=== PATIENT | female | born 1975 | race Hispanic/Latino ===

== ENCOUNTER 2019-07-03 02:53 | Emergency (ER) | payer SELFPAY ==
--- OUTSIDE RECORDS SUMMARY | 2019-07-03 02:56 | XMS REPORT ---
:1975 [facility] [place] [id number] Care Team Providers Name Role Phone Unavailable Unavailable Unavailable Problems This patient has no known problems. Allergies, Adverse Reactions, Alerts This patient has no known allergies or adverse reactions. Medications This patient has no known medications.
[2019-07-03] MEDS ORDERED: THIAMINE 200 MG/2 ML INJ ONE (03:32)
[2019-07-03] MEDS ORDERED: NA CHLORIDE 0.9% 1,000 ML ONE (03:33)
[2019-07-03] MEDS ORDERED: ONDANSETRON 4 MG/2 ML VIAL ONE (03:33)
[2019-07-03] MEDS ORDERED: NA CHLORIDE 0.9% 50 ML IV ONE (03:35)
[2019-07-03 03:52] LABS: Basophils % 1.5 % (0-1.3); Hematocrit 34.9 % (36.0-45.0); Lymphocytes % 59.9 % (15.3-44.8); MPV 8.4 fL (7.6-11.3); RBC Red Blood Cell Count 4.07 M/uL (3.86-4.86)
[2019-07-03 04:00] LABS: Protime INR 0.84
[2019-07-03 04:10] LABS: ALT/SGPT 42 U/L (12-78); AST/SGOT 68 U/L (15-37); Albumin 3.7 g/dL (3.4-5.0); Alkaline Phosphatase 79 U/L (45-117); BUN Blood Urea Nitrogen 6 mg/dL (7-18); Bicarbonate 26 mmol/L (21-32); Bilirubin Direct < 0.1 mg/dL (0-0.2); Bilirubin Total 0.2 mg/dL (0.2-1.0); Glucose Level 98 mg/dL (74-106); Magnesium 2.3 mg/dL (1.8-2.4); NT PRO-BNP 117 pg/mL (<125); Potassium 3.6 mmol/L (3.5-5.1); Protein, Total 7.8 g/dL (6.4-8.2); Sodium Level 146 mmol/L (136-145); Troponin (Emerg Dept Use Only) < 0.02 ng/mL (0.0-0.045)
[2019-07-03 04:41] LABS: Blood Morphology Comment NOT SEEN (NOT SEEN); Platelet Estimate ADEQ; Urine White Blood Cell Casts OK
--- NOTE | 2019-07-03 05:24 | ER ---
Nurse's Notes [facility] Name: Shima Caceres Age: 44 yrs Sex: Female : 1975 Arrival Date: 07/03/2019 Time: 02:55 Bed 8 Private MD: Diagnosis: Essential (primary) hypertension;Alcohol abuse with intoxication Presentation: 07/03 03:05 Presenting complaint: Patient states: that she has been drinking tonight. Unknown why fc but she had an anxiety attack. She feels as if she has high bp and is very nauseated. Denies any pain or dizziness. Transition of care: patient was not received from another setting of care. Onset of symptoms was July 03, 2019. Risk Assessment: Do you want to hurt yourself or someone else? Patient reports no desire to harm self or others. Initial Sepsis Screen: Does the patient meet any 2 criteria? HR > 90 bpm. Yes Does the patient have a suspected source of infection? No. Patient's initial sepsis screen is negative. Care prior to arrival: None. 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 - Social history:: Smoking status: Patient/guardian denies using tobacco, Patient uses alcohol, weekly. - Family history:: not pertinent. - Ebola Screening: : Patient negative for fever greater than or equal to 101.5 degrees Fahrenheit, and additional compatible Ebola Virus Disease symptoms Patient denies exposure to infectious person Patient denies travel to an Ebola-affected area in the 21 days before illness onset. Screenin:17 Abuse screen: Denies threats or abuse. Nutritional screening: No deficits noted. bb Tuberculosis screening: No symptoms or risk factors identified. Fall Risk None identified. Assessment: 03:17 General: Appears in no apparent distress. uncomfortable, Behavior is cooperative, bb anxious, Smells of alcohol, Reports feeling ill for 12-24 hours. Neuro: Level of Consciousness is awake, alert, obeys commands, Oriented to person, place, time, situation. Cardiovascular: Heart tones S1 S2 present. Respiratory: Respiratory effort is even, unlabored, Respiratory pattern is regular, Breath sounds are clear bilaterally. GI: Abdomen is non-distended, Bowel sounds present X 4 quads. Abd is soft and non tender X 4 quads. : No signs and/or symptoms were reported regarding the genitourinary system. Derm: Skin is pink, warm \T\ dry. Musculoskeletal: Circulation, motion, and sensation intact. 04:30 General: Appears in no apparent distress. comfortable, Behavior is calm, cooperative, jd3 appropriate for age, Smells of alcohol. Pain: Denies pain. Neuro: Level of Consciousness is awake, alert, obeys commands, Oriented to person, place, time, situation. Cardiovascular: Capillary refill < 3 seconds Patient's skin is warm and dry. Respiratory: Airway is patent Respiratory effort is even, unlabored, Respiratory pattern is regular, symmetrical, Denies cough, shortness of breath. GI: Abdomen is non-distended, Patient currently denies diarrhea, nausea, vomiting. : No signs and/or symptoms were reported regarding the genitourinary system. EENT: No signs and/or symptoms were reported regarding the EENT system. Derm: Skin is intact, Skin is dry, Skin is normal, Skin temperature is warm. Musculoskeletal: Circulation, motion, and sensation intact. Range of motion: intact in all extremities. 05:41 Reassessment: Patient appears in no apparent distress at this time. Patient and/or jd3 family updated on plan of care and expected duration. Pain level reassessed. Patient is alert, oriented x 3, equal unlabored respirations, skin warm/dry/pink. reported understanding of discharge instructions. even and steady gait upon discharge. Patient denies pain at this time. Patient states feeling better. Vital Signs: 03:05 BP 165 / 111; Pulse 107; Resp 18; Temp 98.0(O); Pulse Ox 99% on R/A; Weight 78.47 kg fc (R); Height 5 ft. 2 in. (157.48 cm) (R); Pain 0/10; 03:56 BP 141 / 93; Pulse 93; Resp 16 S; Pulse Ox 92% on R/A; bb 04:31 BP 110 / 73; Pulse 86; Resp 17 S; Pulse Ox 95% on 2 lpm NC; Pain 0/10; jd3 05:40 BP 112 / 80; Pulse 84; Resp 16 S; Pulse Ox 100% on R/A; Pain 0/10; jd3 03:05 Body Mass Index 31.64 (78.47 kg, 157.48 cm) ED Course: 02:55 Patient arrived in ED. ds1 02:57 Doug Muniz MD is Attending Physician. hollie 03:02 Jayna To, RN is Primary Nurse. lp1 03:05 Arm band placed on Patient placed in an exam room, on a stretcher. 03:17 Triage completed. 03:17 Patient has correct armband on for positive identification. Placed in gown. Bed in low bb position. Call light in reach. Side rails up X 1. Pulse ox on. NIBP on. Warm blanket given. 03:25 Initial lab(s) drawn, by me, sent to lab. Inserted saline lock: 20 gauge in right bb forearm, using aseptic technique. Blood collected. 04:06 XRAY Chest (1 view) In Process Unspecified. EDMS 04:32 Primary Nurse role handed off by Jayna To, RN jd3 04:32 Tonny Pabon, ANASTACIO is Primary Nurse. jd3 05:36 Assist provider with bone marrow aspiration. IV discontinued, intact, bleeding jd3 controlled, No redness/swelling at site. Pressure dressing applied. Administered Medications: 03:42 Drug: NS 0.9% 500 ml Route: IV; Rate: bolus; Site: right forearm; bb 05:28 Follow up: Response: No adverse reaction; IV Status: Completed infusion; IV Intake: jd3 500ml 03:43 Drug: Zofran 4 mg Route: IVP; Site: right forearm; bb 03:55 Follow up: Response: No adverse reaction bb 03:56 Follow up: Response: No adverse reaction bb 03:45 Drug: Thiamine 100 mg Route: IV; Rate: bolus; Site: right forearm; bb 03:55 Follow up: Response: No adverse reaction; IV Status: Completed infusion; IV Intake: 52mlbb 04:30 Drug: NS 0.9% 1000 ml Route: IV; Rate: 125 ml/hr; Site: right forearm; jd3 05:31 Follow up: Response: No adverse reaction; IV Status: Order to discontinue infusion jd3 05:31 Not Given (Physician Discretion): Lisinopril 5 mg PO once jd3 Intake: 03:55 IV: 52ml; Total: 52ml. tiesha 05:28 IV: 500ml; Total: 552ml. jd3 Outcome: 05:23 Discharge ordered by MD. browne 05:41 Discharged to home ambulatory, with family. jd3 05:41 Condition: stable 05:41 Discharge instructions given to patient, Instructed on discharge instructions, follow up and referral plans. medication usage, Demonstrated understanding of instructions, follow-up care, medications, Prescriptions given X 1. 05:41 Patient left the ED. jd3 Signatures: Dispatcher [employer] EDMS Doug Muniz MD MD cha Chretien, Felicia, RN RN Shilpa Bhandari ds1 Astrid Casper RN RN bb Pena, Laura, RN RN lp1 Tonny Pabon RN RN jd3
--- NOTE | 2019-07-03 05:24 | EDPHYS ---
Physician Documentation [facility] Name: Shima Caceres Age: 44 yrs Sex: Female : 1975 Arrival Date: 07/03/2019 Time: 02:55 Bed 8 Private MD: ED Physician Doug Muniz HPI: 07/03 03:13 This 44 yrs old Female presents to ER via Unassigned with complaints of High hollie Blood Pressure. 03:13 The patient has elevated blood pressure and discovered this at home, with a home hollie device. Onset: The symptoms/episode began/occurred just prior to arrival. Modifying factors: The symptoms are aggravated by activity, The symptoms are alleviated by remaining still. Associated signs and symptoms: The patient has no apparent associated signs or symptoms. Severity of symptoms: At its worst the blood pressure was moderate, in the emergency department the blood pressure is unchanged. The patient has not experienced similar symptoms in the past. 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 - Social history:: Smoking status: Patient/guardian denies using tobacco, Patient uses alcohol, weekly. - Family history:: not pertinent. - Ebola Screening: : Patient negative for fever greater than or equal to 101.5 degrees Fahrenheit, and additional compatible Ebola Virus Disease symptoms Patient denies exposure to infectious person Patient denies travel to an Ebola-affected area in the 21 days before illness onset. ROS: 03:13 Constitutional: Negative for fever, chills, and weight loss, Eyes: Negative for injury, hollie pain, redness, and discharge, ENT: Negative for injury, pain, and discharge, Neck: Negative for injury, pain, and swelling, Cardiovascular: Negative for chest pain, palpitations, and edema, Respiratory: Negative for shortness of breath, cough, wheezing, and pleuritic chest pain, Back: Negative for injury and pain, : Negative for injury, bleeding, discharge, and swelling, MS/Extremity: Negative for injury and deformity, Skin: Negative for injury, rash, and discoloration, Neuro: Negative for headache, weakness, numbness, tingling, and seizure, Psych: Negative for depression, anxiety, suicide ideation, homicidal ideation, and hallucinations, Allergy/Immunology: Negative for hives, rash, and allergies, Endocrine: Negative for neck swelling, polydipsia, polyuria, polyphagia, and marked weight changes, Hematologic/Lymphatic: Negative for swollen nodes, abnormal bleeding, and unusual bruising. 03:13 Abdomen/GI: Positive for nausea. Exam: 03:13 Constitutional: This is a well developed, well nourished patient who is awake, alert, hollie and in no acute distress. Head/Face: Normocephalic, atraumatic. Eyes: Pupils equal round and reactive to light, extra-ocular motions intact. Lids and lashes normal. Conjunctiva and sclera are non-icteric and not injected. Cornea within normal limits. Periorbital areas with no swelling, redness, or edema. ENT: Nares patent. No nasal discharge, no septal abnormalities noted. Tympanic membranes are normal and external auditory canals are clear. Oropharynx with no redness, swelling, or masses, exudates, or evidence of obstruction, uvula midline. Mucous membranes moist. Neck: Trachea midline, no thyromegaly or masses palpated, and no cervical lymphadenopathy. Supple, full range of motion without nuchal rigidity, or vertebral point tenderness. No Meningismus. Chest/axilla: Normal chest wall appearance and motion. Nontender with no deformity. No lesions are appreciated. Respiratory: Lungs have equal breath sounds bilaterally, clear to auscultation and percussion. No rales, rhonchi or wheezes noted. No increased work of breathing, no retractions or nasal flaring. Abdomen/GI: Soft, non-tender, with normal bowel sounds. No distension or tympany. No guarding or rebound. No evidence of tenderness throughout. Back: No spinal tenderness. No costovertebral tenderness. Full range of motion. Female : Normal external genitalia. Skin: Warm, dry with normal turgor. Normal color with no rashes, no lesions, and no evidence of cellulitis. MS/ Extremity: Pulses equal, no cyanosis. Neurovascular intact. Full, normal range of motion. Neuro: Awake and alert, GCS 15, oriented to person, place, time, and situation. Cranial nerves II-XII grossly intact. Motor strength 5/5 in all extremities. Sensory grossly intact. Cerebellar exam normal. Normal gait. Psych: Awake, alert, with orientation to person, place and time. Behavior, mood, and affect are within normal limits. 03:13 Cardiovascular: Rate: tachycardic, Rhythm: regular, Pulses: Pulses are 4+ in bilateral radial, brachial, femoral, popliteal, posterior tibial and and dorsalis pedis arteries.. Heart sounds: normal, Edema: is not appreciated, JVD: is not appreciated. 05:24 Musculoskeletal/extremity: DVT Exam: No signs of deep vein thrombosis. no pain, no hollie swelling, no tenderness, negative Homans' sign noted on exam, no appreciated bluish discoloration, no erythema, no increased warmth. Vital Signs: 03:05 BP 165 / 111; Pulse 107; Resp 18; Temp 98.0(O); Pulse Ox 99% on R/A; Weight 78.47 kg fc (R); Height 5 ft. 2 in. (157.48 cm) (R); Pain 0/10; 03:56 BP 141 / 93; Pulse 93; Resp 16 S; Pulse Ox 92% on R/A; bb 04:31 BP 110 / 73; Pulse 86; Resp 17 S; Pulse Ox 95% on 2 lpm NC; Pain 0/10; jd3 05:40 BP 112 / 80; Pulse 84; Resp 16 S; Pulse Ox 100% on R/A; Pain 0/10; jd3 03:05 Body Mass Index 31.64 (78.47 kg, 157.48 cm) MDM: 03:04 Patient medically screened. [facility] 03:15 Data reviewed: vital signs, nurses notes, lab test result(s), EKG, radiologic studies, hollie plain films. 07/03 03:12 Order name: Basic Metabolic Panel [facility] 07/03 03:12 Order name: CBC with Diff [facility] 07/03 03:12 Order name: LFT's [facility] 07/03 03:12 Order name: Magnesium [facility] 07/03 03:12 Order name: NT PRO-BNP [facility] 07/03 03:12 Order name: PT-INR [facility] 07/03 03:12 Order name: Troponin (emerg Dept Use Only) [facility] 07/03 03:12 Order name: Acetaminophen; Complete Time: 05:13 [facility] 07/03 03:12 Order name: ETOH Level; Complete Time: 05:13 [facility] 07/03 03:12 Order name: Ptt, Activated; Complete Time: 05:13 [facility] 07/03 03:12 Order name: Salicylate; Complete Time: 05:13 [facility] 07/03 03:14 Order name: Basic Metabolic Panel; Complete Time: 05:13 [facility] 07/03 03:14 Order name: CBC with Automated Diff; Complete Time: 05:13 [facility] 07/03 03:12 Order name: XRAY Chest (1 view) [facility] 07/03 03:12 Order name: EKG; Complete Time: 03:15 [facility] 07/03 03:12 Order name: Cardiac monitoring; Complete Time: 03:28 [facility] 07/03 03:12 Order name: EKG - Nurse/Tech; Complete Time: 03:28 [facility] 07/03 03:12 Order name: IV Saline Lock; Complete Time: 03:28 [facility] 07/03 03:14 Order name: Liver (Hepatic) Function; Complete Time: 05:13 [facility] 07/03 03:14 Order name: Magnesium; Complete Time: 05:13 [facility] 07/03 03:14 Order name: NT PRO-BNP; Complete Time: 05:13 [facility] 07/03 03:14 Order name: Protime (+INR); Complete Time: 05:13 [facility] 07/03 03:14 Order name: Troponin (Emerg Dept Use Only); Complete Time: 05:13 [facility] 07/03 04:42 Order name: CBC Smear Scan; Complete Time: 05:13 [facility] 07/03 03:12 Order name: Labs collected and sent; Complete Time: 03:28 [facility] 07/03 03:12 Order name: O2 Per Protocol; Complete Time: 03:28 [facility] 07/03 03:12 Order name: O2 Sat Monitoring; Complete Time: 03:28 [facility] Administered Medications: 03:42 Drug: NS 0.9% 500 ml Route: IV; Rate: bolus; Site: right forearm; bb 05:28 Follow up: Response: No adverse reaction; IV Status: Completed infusion; IV Intake: jd3 500ml 03:43 Drug: Zofran 4 mg Route: IVP; Site: right forearm; bb 03:55 Follow up: Response: No adverse reaction bb 03:56 Follow up: Response: No adverse reaction bb 03:45 Drug: Thiamine 100 mg Route: IV; Rate: bolus; Site: right forearm; bb 03:55 Follow up: Response: No adverse reaction; IV Status: Completed infusion; IV Intake: 52mlbb 04:30 Drug: NS 0.9% 1000 ml Route: IV; Rate: 125 ml/hr; Site: right forearm; jd3 05:31 Follow up: Response: No adverse reaction; IV Status: Order to discontinue infusion jd3 05:31 Not Given (Physician Discretion): Lisinopril 5 mg PO once jd3 Disposition: 07/03/19 05:23 Discharged to Home. Impression: Essential (primary) hypertension, Alcohol abuse with intoxication. - Condition is Stable. - Discharge Instructions: Alcohol Intoxication, Hypertension, Alcohol Intoxication, [id number], Hypertension, Ocyi-yk-Rued, Alcohol Abuse and Nutrition, How to Take Your Blood Pressure, Iicy-cu-Xkxa, Aspirin and Your Heart, Managing Your Hypertension. - Prescriptions for Lisinopril 5 mg Oral Tablet - take 1 tablet by ORAL route once daily; 20 tablet. - Medication Reconciliation Form, Thank You Letter, Antibiotic Education, Prescription Opioid Use form. - Follow up: Private Physician; When: 2 - 3 days; Reason: Recheck today's complaints, Continuance of care, Re-evaluation by your physician. - Problem is new. - Symptoms have improved. Signatures: Dispatcher [employer] EDDoug Dan MD MD cha Chretien, Felicia RN RN Astrid Rich RN RN bb Davies, Jonathon, RN RN jd3 Corrections: (The following items were deleted from the chart) 05:41 05:23 07/03/2019 05:23 Discharged to Home. Impression: Essential (primary) jd3 hypertension; Alcohol abuse with intoxication. Condition is Stable. Forms are Medication Reconciliation Form, Thank You Letter, Antibiotic Education, Prescription Opioid Use. Follow up: Private Physician; When: 2 - 3 days; Reason: Recheck today's complaints, Continuance of care, Re-evaluation by your physician. Problem is new. Symptoms have improved. hollie
--- NOTE | 2019-07-03 07:43 | EKG ---
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
--- NOTE | 2019-07-03 08:20 | RAD REPORT ---
EXAM DESCRIPTION: RAD - Chest Single View - 07/03/2019 4:06 am CLINICAL HISTORY: COUGH Chest pain. COMPARISON: No comparisons FINDINGS: Portable technique limits examination quality. The lungs are grossly clear. The heart is normal in size. No displaced fractures. IMPRESSION: No acute intrathoracic process suspected.
== END 2019-07-03 05:41 | disposition home or self-care (01) ==
LOC: ER 02:53
DX: F10.129 Alcohol abuse with intoxication, unspecified (principal)
CPT/HCPCS: 36415; 71045; 80048; 80076; 80320; 80329; 83735; 83880; 84484; 85025; 85610; 85730; 93005; 96361; 96374; 96375; 99285; J2405; J3411; J7030